=== PATIENT | female | born 1980 | race Caucasian/White ===

== ENCOUNTER → 2016-11-27 | Outpatient (CLI) | payer OTHER ==
[~2016-11-27] MED LIST: 'PARAFON FORTE500 M1 PO; ANTIVERT25 MG PO; LOPRESSOR25 MG PO; NAPROSYN500 MG PO; NKHM; ZOFRAN ODT8 MG PO
== END ==
LOC: US 05:59
DX: R10.31 Right lower quadrant pain (principal); R01.1 Cardiac murmur, unspecified; R19.8 Other specified symptoms and signs involving the digestive system and abdomen

== ENCOUNTER → 2016-12-02 | Outpatient (CLI) | payer OTHER | LOC: CARD 06:54 | DX: I08.1 Rheumatic disorders of both mitral and tricuspid valves (principal) ==

== ENCOUNTER 2017-01-25 20:06 | Emergency (ER) | payer SELFPAY ==
[~2017-01-25] VITALS: Ht 152.4 cm; Wt 56.2 kg
[2017-01-25 20:23] VITALS: BP 127/88
[2017-01-25] MEDS ORDERED: Motrin,Rufen800 MG PO (21:55)
== END 2017-01-25 22:06 | disposition home or self-care (01) ==
LOC: ED 20:06
DX: S66.912A Strain of unspecified muscle, fascia and tendon at wrist and hand level, left hand, initial encounter (principal); Z88.6 Allergy status to analgesic agent; Z88.1 Allergy status to other antibiotic agents; Z91.040 Latex allergy status; Z79.899 Other long term (current) drug therapy; X58.XXXA Exposure to other specified factors, initial encounter; Y93.89 Activity, other specified; Y92.89 Other specified places as the place of occurrence of the external cause; Y99.8 Other external cause status

== ENCOUNTER → 2018-01-06 | Outpatient (CLI) | payer OTHER ==
[~2018-01-06] MED LIST changes: +Motrin,Rufen800 MG PO
[2018-01-06 18:53] LABS: FREE T4 0.89 ng/dl (0.76-1.46); THYROXINE (T4) TOTAL 9.1 ug/dl (4.8-13.9); URIC ACID 3.6 mg/dL (2.6-6.0)
[2018-01-06 18:59] LABS: THYROID STIM HORMONE (HS) 0.985 uIU/ml (0.358-4.75)
== END | disposition home or self-care (01) ==
LOC: LAB 17:54
PROVIDERS: Internal Medicine
DX: I47.1 Supraventricular tachycardia (principal)